=== PATIENT | female | born 1990 | race Hispanic/Latino ===

== ENCOUNTER 2018-01-09 12:47 | Emergency (ER) | payer OTHER ==
--- NOTE | 2018-01-09 14:14 | OBHP ---
Datetime: 01/09/2018 14:01 IP Adm Impression: , intrauterine IP Admit Plan: Discharge home Admit Comment, IP Provider: 27 yo female G1 with an IUP at 30.[address] Jackson office foe NST after a low baseline with Doppler at ofice visit Pt admits to lots of FM. Denies VB or LOF and no pains FHT's reactive and reassuring for GA. Fetus very active and difficult to keep in continuous monito ring NST Reactive Pt reassured and Dr. Jackson Notified and pt Discharge home in Stable and Satisfactory condition. Pelvic Type - PN: Adequate Extremities - PN: Normal Abdomen - PN: Normal Back - PN: Normal Breast - PN: Not Done Lungs - PN: Normal Heart - PN: Normal Thyroid - PN: Normal Neurologic - PN: Normal HEENT - PN: Normal General - PN: Normal IP Fetus A Comments: Pt very active FHR - Baseline A Provider: 140-150 Membranes, Provider: Intact Gestation - Est Wks by US: 30.5 EGA AdmitDate IP: 30.5 Vital Signs Provider: Reviewed; Within Normal Limits IP Chief Complaint: evaluation NICHD Variability Prov Fetus A: Moderate 6-25bpm NICHD Accel Fetus A IP Provider: 10X10 NICHD Decel Fetus A IP Provider: None Dilatation, Provider: NI Genitourinary Exam: Normal DTRs - PN: Normal
--- NOTE | 2018-01-09 14:17 | OBDCSUM ---
Datetime: 01/09/2018 13:59 Discharged to, Provider: Home Follow up at, Provider: dr robert Disch Instr Activity: Normal activity Disch Instr Diet: Regular Discharge Instructions, Provider: Routine instructions given Discharge Time: 01/09/2018 13:59 Follow up in weeks, Provider: scheduled appointment Disch Referrals: None Discharge Diagnosis Prov Other: Reassuring FH tracing
[2018-01-09 18:45] VITALS: BP 122/68; PULSE 86
== END 2018-01-09 14:03 | disposition home or self-care (01) ==
LOC: C.EROB 12:47 → EDSTATUS 12:51 → C.EROB 14:03
DX: Z36.89 Encounter for other specified antenatal screening (principal)

== ENCOUNTER 2018-02-18 16:55 | Emergency (ER) | payer OTHER ==
--- NOTE | 2018-02-18 17:04 | C.PDOC ---
History Of Present Illness 27 y/o female, , 36 weeks gestation, presents to ED for evaluation s/p slip and fall at work today. Pt states she landed on the right side of her chest/ribs and is complaining of pain to that area. Denies LOC, vaginal bleeding, leakage of fluids, or any other associated symptoms at this time. - HPI Time Seen by Provider: 02/18/18 16:57 History Per: Patient History/Exam Limitations: no limitations Location Of Injury: Right: Chest Recent travel outside of the [place]: No Additional History Per: Patient Past Medical History Reviewed: Historical Data, Nursing Documentation, Vital Signs - Medical History PMH: Seizures (febrile seizure at childhood age) Family History: States: Unknown Family Hx - Social History Hx Tobacco Use: No Hx Alcohol Use: No Hx Substance Use: No - Immunization History Hx Influenza Vaccination: No Hx Pneumococcal Vaccination: No Review Of Systems Except As Marked, All Systems Reviewed And Found Negative. Constitutional: Negative for: Fever, Chills Respiratory: Negative for: Shortness of Breath Gastrointestinal: Negative for: Nausea, Vomiting, Abdominal Pain Genitourinary: Negative for: Vaginal Discharge, Vaginal Bleeding Musculoskeletal: Positive for: Other (right lower rib pain ) Physical Exam - Physical Exam Appears: Non-toxic, No Acute Distress Skin: Warm, Dry, Ecchymosis (small area of ecchymosis right lower rib area) Head: Atraumatic, Normacephalic Eye(s): bilateral: Normal Inspection Oral Mucosa: Moist Neck: Normal ROM, Supple Chest: Symmetrical, No Deformity, Tenderness (small area of tenderness to right lower costal margin) Cardiovascular: Rhythm Regular, No Murmur Respiratory: Normal Breath Sounds, No Accessory Muscle Use, No Rales, No Rhonchi, No Wheezing Gastrointestinal/Abdominal: Soft, No Tenderness, No Guarding, No Rebound, Other (gravid abdomen) Back: No CVA Tenderness Extremity: Normal ROM Neurological/Psych: Oriented x3, Normal Speech ED Course And Treatment - Laboratory Results Result Diagrams: 02/18/18 19:01 Medical Decision Making Medical Decision Making: Discussed risks and benefits of rib Xray to patient to rule out possible fracture. Pt declined Xray. Pt declined pain meds. Disposition - Disposition Disposition: HOME/ ROUTINE Disposition Time: 05:00 Condition: GOOD Additional Instructions: return to er with worsening symptoms or concerns. you are declining an xray at this time. you are able to return at any time with any concern Instructions: Bruised Rib Forms: [employer] (Macedonian) - Clinical Impression Clinical Impression: Fall, Rib contusion - Scribe Statement The provider has reviewed the documentation as recorded by the Scribe KP All medical record entries made by the Scribe were at my direction and personally dictated by me. I have reviewed the chart and agree that the record accurately reflects my personal performance of the history, physical exam, medical decision making, and the department course for this patient. I have also personally directed, reviewed, and agree with the discharge instructions and disposition.
[2018-02-18 17:09] VITALS: BMI 38.9
[2018-02-18 17:13] VITALS: RESP 18; O2SAT 99
[2018-02-18 19:04] LABS: BASO # 0.1 K/uL (0.0-0.2); BASO % 0.7 % (0.0-2.0); EOS # 0.2 K/uL (0.0-0.7); EOS % 1.3 % (0.0-4.0); HEMOGLOBIN 10.7 g/dL (11.0-16.0); LYMPH # 2.3 K/uL (1.0-4.3); LYMPH % 20.1 % (20.0-40.0); MEAN CORPUSCULAR HEMOGLOBIN 29.3 pg (27.0-31.0); MEAN CORPUSCULAR HGB CONC 33.6 g/dL (33.0-37.0); MEAN PLATELET VOLUME 8.2 fL (7.2-11.7); MONO # 0.7 K/uL (0.0-0.8); MONO % 6.4 % (0.0-10.0); NEUT # 8.3 K/uL (1.8-7.0); NEUT % 71.5 % (50.0-75.0); RBC 3.65 Mil/uL (3.80-5.20); RED CELL DISTRIBUTION WIDTH 12.7 % (11.5-14.5); WHITE BLOOD COUNT 11.6 K/uL (4.8-10.8)
--- NOTE | 2018-02-18 19:18 | OBHP ---
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 Denies any LOF, VB or VD and admits to a dequate movement. PMHx and PSHx: Negative Allergies:Ceclor and MMR Vaccine, Unknown reaction Social Hx: Negative x 3 VSS, Afebrile NST Reactive FHT's Category 1 No contractions recorded, perceived or palpated D/W Dr. Jackson, her Private OBGYN and recommended continue monitoring x 4 hours and to draw CBC and T_Screen and orders placed. Also may have Tylenol for pain orn. Pt aware of POC and requested Tylenol and given. Pelvic Type - PN: Adequate Extremities - PN: Normal Abdomen - PN: Normal Back - PN: Abnormal Breast - PN: Not Done Lungs - PN: Normal Heart - PN: Normal Thyroid - PN: Normal Neurologic - PN: Normal General - PN: Normal Presentation-Admit: Vertex FHR - Baseline A Provider: 120 Membranes, Provider: Intact Contraction Comments Provider: None Comments, ACOG Physical Exam: + skin Abrasion over the Ourter portion of her Right Upper Quadrant an d was evaluated in ER and cleared Gestation - Est Wks by US: 36.3 EGA AdmitDate IP: 36.3 Vital Signs Provider: Reviewed; Within Normal Limits IP Chief Complaint: Maternal discomfort; evaluation; Trauma/Fall NICHD Variability Prov Fetus A: Moderate 6-25bpm NICHD Accel Fetus A IP Provider: 10X10 FHR Category Provider Fetus A: Category I NICHD Decel Fetus A IP Provider: None Dilatation, Provider: NA Genitourinary Exam: Normal DTRs - PN: Normal
--- NOTE | 2018-02-18 21:59 | OBDCSUM ---
Datetime: 02/18/2018 21:50 Discharged to, Provider: Home Follow up at, Provider: DR VEGA ESPINOZA Follow up at, Provider: Dr. 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 Denied direct trauma to her belly and a lso denied any LOF, VB or VD and admited to adequate movement. PMHx and PSHx: Negative Allergies:Ceclor and MMR Vaccine, Unknown reaction Social Hx: Negative x 3 VSS, Afebrile NST Reactive FHT's Category 1 No contractions recorded, perceived or palpated D/W Dr. Espinoza, her Private OBGYN and recommended continue monitoring x 4 hours and to draw CBC and T_Screen and orders placed. Also may have Tylenol for pain orn. FHT's reassuring during her 4 hrs of monitoring and no uterine activity perceived or recording Note given to stay off work in AM and will f/up with Dr. Espinoza on Tuesday and will get a note to re turn to work Advised to take Tylenol 2 tabs Q 4 hrs for pain as needed but not to exceed 4 doses in 24 hours. Discharge home with instructions Discharge Diagnosis Prov Other: S/P fall S/P Monitoring
[2018-02-19 03:19] VITALS: BP 134/66; PULSE 89; TEMP 98.9
== END 2018-02-18 21:50 | disposition home or self-care (01) ==
LOC: C.EROB 16:55 → C.ER 16:55 → C.EROB 21:50
DX: O9A.213 Injury, poisoning and certain other consequences of external causes complicating pregnancy, third trimester (principal); S20.211A Contusion of right front wall of thorax, initial encounter; Z3A.36 36 weeks gestation of pregnancy; W01.0XXA Fall on same level from slipping, tripping and stumbling without subsequent striking against object, initial encounter; Y99.0 Civilian activity done for income or pay

== ENCOUNTER 2018-02-27 11:46 | Emergency (ER) | payer OTHER ==
--- NOTE | 2018-02-27 12:44 | OBHP ---
Datetime: 02/27/2018 12:33 IP Adm Impression: Term, intrauterine ; , intrauterine IP Admit Plan: Observation/Evaluation Admit Comment, IP Provider: with IUP at 37+5 weeks. presents from private office with elevated BP, Systolic in 150 +FM - LOF - CTX - VB denies LOPEZ CP SOB N/V abnormal swelling or any visual chances PGYN: LMP 06/08 regular cycles, history of chlamydia in this s/p treatment, unknown PAPs PMH: childhood seizure disorder? last event age 7, no current antiepileptics PSH: denies FH: mothers side with DM and HTM NKDA Meds: PNV cervix closed EFM CAT 1 plan: PIH labs, monitor, private physician Dr. Maddi Jackson notified Pelvic Type - PN: Adequate Extremities - PN: Normal Abdomen - PN: Normal Back - PN: Not Done Breast - PN: Not Done Lungs - PN: Not Done Heart - PN: Not Done Thyroid - PN: Not Done Neurologic - PN: Normal HEENT - PN: Not Done General - PN: Normal FHR - Baseline A Provider: 140 Membranes, Provider: Intact Gestation - Est Wks by US: 37+5 EGA AdmitDate IP: 37.5 Vital Signs Provider: Reviewed; Within Normal Limits IP Chief Complaint: Signs/Symptoms Gestational HTN NICHD Variability Prov Fetus A: Moderate 6-25bpm NICHD Accel Fetus A IP Provider: 15X15 FHR Category Provider Fetus A: Category I NICHD Decel Fetus A IP Provider: None Dilatation, Provider: 0 Effacement, Provider: 0 Station, Provider: -3 Genitourinary Exam: Not Done DTRs - PN: Normal
[2018-02-27 13:24] LABS: MEAN CELL VOLUME 87.1 fL (81.0-99.0); MEAN CORPUSCULAR HEMOGLOBIN 29.7 pg (27.0-31.0); MEAN CORPUSCULAR HGB CONC 34.1 g/dL (33.0-37.0); MEAN PLATELET VOLUME 8.3 fL (7.2-11.7); RBC 3.71 Mil/uL (3.80-5.20); WHITE BLOOD COUNT 10.1 K/uL (4.8-10.8)
[2018-02-27 13:32] LABS: PROTHROMBIN TIME 11.4 SECONDS (9.7-12.2)
[2018-02-27 13:36] LABS: SQUAMOUS EPITHIAL 20 /hpf (0-5); URINE BACTERIA OCC (<OCC); URINE BILIRUBIN NEGATIVE (NEGATIVE); URINE BLOOD NEGATIVE (NEGATIVE); URINE CLARITY Hazy (Clear); URINE COLOR Yellow (YELLOW); URINE GLUCOSE (UA) NORMAL (Normal); URINE LEUKOCYTE ESTERASE 2+ Leu/uL (Negative); URINE PROTEIN NEGATIVE (NEGATIVE); URINE UROBILINOGEN NORMAL mg/dL (0.2-1.0)
[2018-02-27 13:42] LABS: ALBUMIN 3.4 g/dL (3.5-5.0); ALT/SGPT 22 U/L (9-52); AST/SGOT 17 U/L (14-36); BLOOD UREA NITROGEN 5 mg/dL (7-17); CALCIUM 8.8 mg/dl (8.6-10.4); GFR NON-AFRICAN AMERICAN > 60; URIC ACID 4.2 mg/dL (2.2-7.5)
--- NOTE | 2018-02-27 13:56 | OBHP ---
Datetime: 02/27/2018 12:33 Admit Comment, IP Provider: with IUP at 37+5 weeks. presents from private office with elevated BP, Systolic in 150 +FM - LOF - CTX - VB denies LOPEZ CP SOB N/V abnormal swelling or any visual chances PGYN: LMP 06/08 regular cycles, history of chlamydia in this s/p treatment, unknown PAPs PMH: childhood seizure disorder? last event age 7, no current antiepileptics PSH: denies FH: mothers side with DM and HTM NKDA Meds: PNV cervix closed EFM CAT 1 plan: PI labs, monitor, private physician Dr. Maddi Jackson notified Addendum: PIH labs normal, BPS, normal no signs/symptoms of preeclampsia to follow up in office next week Dr. Maddi Jackson notified EGA AdmitDate IP: 37.5
[2018-02-28 00:09] VITALS: BMI 40.4
[2018-02-28 01:06] VITALS: BP 130/81; PULSE 96; RESP 20; TEMP 98.3
== END 2018-02-27 14:03 | disposition home or self-care (01) ==
LOC: C.EROB 11:46
DX: O16.3 Unspecified maternal hypertension, third trimester (principal); Z3A.37 37 weeks gestation of pregnancy

== ENCOUNTER 2018-03-05 15:38 | Emergency (ER) | payer OTHER ==
--- NOTE | 2018-03-05 19:44 | OBHP ---
Datetime: 03/05/2018 19:40 IP Adm Impression: Term, intrauterine IP Admit Plan: Discharge home Admit Comment, IP Provider: A/P: IUP at 38+4 wks in early labor - primgravida - ambulated for 2 hours with no cervical change - labor precautions given - cat 1 tracing - D/C home FHR - Baseline A Provider: 140a Membranes, Provider: Intact Contraction Comments Provider: q4-7 EGA AdmitDate IP: 38.4 IP Chief Complaint: Uterine contractions NICHD Variability Prov Fetus A: Moderate 6-25bpm NICHD Accel Fetus A IP Provider: 15X15 FHR Category Provider Fetus A: Category I NICHD Decel Fetus A IP Provider: None Dilatation, Provider: 1 Effacement, Provider: 70 Station, Provider: -3
--- NOTE | 2018-03-05 19:47 | OBDCSUM ---
Datetime: 03/05/2018 19:39 Discharged to, Provider: Home Follow up at, Provider: Dr Jackson Disch Instr Activity: Normal activity Disch Instr Diet: Regular Discharge Instructions, Provider: Routine instructions given Discharge Time: 03/05/2018 19:40 Follow up in weeks, Provider: 03/06/18 Disch Referrals: None Discharge Diagnosis Prov Other: term, early labor
[2018-03-05 19:49] VITALS: BMI 38.9
[2018-03-06 00:03] VITALS: BP 120/76; PULSE 107; RESP 20; TEMP 98.7
== END 2018-03-05 19:55 | disposition home or self-care (01) ==
LOC: C.EROB 15:38
DX: O47.1 False labor at or after 37 completed weeks of gestation (principal); Z3A.38 38 weeks gestation of pregnancy

== ENCOUNTER 2018-03-06 11:08 | Inpatient (IN) | payer OTHER ==
[2018-03-06 12:36] VITALS: BMI 40.7
[2018-03-06 13:05] LABS: BASO # 0.1 K/uL (0.0-0.2); BASO % 1.2 % (0.0-2.0); EOS # 0.1 K/uL (0.0-0.7); EOS % 1.3 % (0.0-4.0); HEMOGLOBIN 10.6 g/dL (11.0-16.0); LYMPH # 1.8 K/uL (1.0-4.3); MEAN CELL VOLUME 87.3 fL (81.0-99.0); MEAN CORPUSCULAR HEMOGLOBIN 29.8 pg (27.0-31.0); MEAN CORPUSCULAR HGB CONC 34.1 g/dL (33.0-37.0); MEAN PLATELET VOLUME 8.6 fL (7.2-11.7); MONO # 0.7 K/uL (0.0-0.8); MONO % 6.4 % (0.0-10.0); NEUT # 8.4 K/uL (1.8-7.0); NEUT % 75.1 % (50.0-75.0); NRBC % 0.1 % (0.0-2.0); RBC 3.56 Mil/uL (3.80-5.20); RED CELL DISTRIBUTION WIDTH 13.5 % (11.5-14.5); WHITE BLOOD COUNT 11.1 K/uL (4.8-10.8)
--- NOTE | 2018-03-06 16:02 | OBHP ---
Datetime: 03/06/2018 12:48 IP Adm Impression: Term, intrauterine IP Admit Plan: Admit to unit Admit Comment, IP Provider: This 27 year old Female with PMHx of Gestational HTN and Chlamydial infe ction (treated early in this ) - instructed to come in by her ObGyn 2/2 worsening HTN for IO L. She is with EDC 03/15/18. She denies any vaginal bleeding, decreased movement, or loss o f fluid. She does c/o CTX's yesterday q5min from 1p to 6p. She also c/o milky vaginal drainage for th e last day. Otherwise denies any f/c, dizziness, headache, chest pain, SOB, abdominal pain, n/v, d/c, LE edema, or any additional acute complaints. PMHx- Gestational HTN, chlamydial infection treated in 1st trimester; Seizure d/o (last seizure at 7yo) PSHx- none Meds- PNV Allergies- ceclor (rash); Fish/shrimp (rash, difficulty breathing); MMR (fever 105F). FamHx- Mom 55yo w/DM + HTN; Dad 62yo w/ colitis SocHx- no tobacco, etoh, or drug use, +sexually active during ObHx: EDC 03/15/18 (based on LMP) LMP 06/08/17 GynHx: Menses onset at 15yo Periods [id number], lasting 5d- normal flow Last PAP 07/19/17- normal STDs- chlamydia tx'd in 1st trimester No fam hx of breast or ovarian/cervica cancer A_P: -admit for IOL, per Dr. Jackson's instructions -workup for preeclampsia- CBC, CMP, LDH, Uric acid, PT/PTT, fibrinogen -Gestational HTN- monitor BP -f/u RPR, HIV, HepBsAg -NST Reactive -activity as ordered -regular diet Case discussed with Dr. Nic Palmer, DO, PGY3 Extremities - PN: Normal Abdomen - PN: Normal Back - PN: Normal Breast - PN: Not Done Lungs - PN: Normal Heart - PN: Normal Thyroid - PN: Normal Neurologic - PN: Normal HEENT - PN: Normal General - PN: Normal Presentation-Admit: Vertex FHR - Baseline A Provider: 144 Membranes, Provider: Intact Contraction Comments Provider: Ocassional Comments, ACOG Physical Exam: no LE Edema, Fundus at 40cm Gestation - Est Wks by US: 38.5 IP Hx Assessment: PNC records available and reviewed EGA AdmitDate IP: 38.5 Vital Signs Provider: Reviewed; Within Normal Limits IP Chief Complaint: Signs/Symptoms Gestational HTN; Scheduled induction of labor NICHD Variability Prov Fetus A: Moderate 6-25bpm NICHD Accel Fetus A IP Provider: 10X10 FHR Category Provider Fetus A: Category I NICHD Decel Fetus A IP Provider: None Dilatation, Provider: 1 Effacement, Provider: 30 Station, Provider: -3 Genitourinary Exam: Normal DTRs - PN: Normal
--- NOTE | 2018-03-06 16:08 | OBADHP ---
Datetime: 03/06/2018 12:48 Admit Comment, IP Provider: This 27 year old Female with PMHx of Gestational HTN and Chlamydial infe ction (treated early in this ) - instructed to come in by her ObGyn 2/2 worsening HTN for IO L. She is with EDC 03/15/18. She denies any vaginal bleeding, decreased movement, or loss o f fluid. She does c/o CTX's yesterday q5min from 1p to 6p. She also c/o milky vaginal drainage for th e last day. Otherwise denies any f/c, dizziness, headache, chest pain, SOB, abdominal pain, n/v, d/c, LE edema, or any additional acute complaints. PMHx- Gestational HTN, chlamydial infection treated in 1st trimester; Seizure d/o (last seizure at 7yo) PSHx- none Meds- PNV Allergies- ceclor (rash); Fish/shrimp (rash, difficulty breathing); MMR (fever 105F). FamHx- Mom 55yo w/DM + HTN; Dad 62yo w/ colitis SocHx- no tobacco, etoh, or drug use, +sexually active during ObHx: EDC 03/15/18 (based on LMP) LMP 06/08/17 GynHx: Menses onset at 15yo Periods [id number], lasting 5d- normal flow Last PAP 07/19/17- normal STDs- chlamydia tx'd in 1st trimester No fam hx of breast or ovarian/cervica cancer A_P: -admit for IOL, per Dr. Jackson's instructions and will place Cervidil -workup for preeclampsia- CBC, CMP, LDH, Uric acid, PT/PTT, fibrinogen ordered and pending -Gestational HTN- Continue monitor BP -f/u RPR, HIV, HepBsAg still pending -NST Reactive -activity as ordered -regular diet -Anticipate Vaginal delivery Case discussed with Dr. Nic Palmer, DO, PGY3 Extremities - PN: Normal Abdomen - PN: Normal Back - PN: Normal Breast - PN: Not Done Lungs - PN: Normal Heart - PN: Normal Thyroid - PN: Normal Neurologic - PN: Normal HEENT - PN: Normal General - PN: Normal Presentation-Admit: Vertex FHR - Baseline A Provider: 144 Membranes, Provider: Intact Contraction Comments Provider: Ocassional Comments, ACOG Physical Exam: no LE Edema, Fundus at 40cm Gestation - Est Wks by US: 38.5 IP Hx Assessment: PNC records available and reviewed Vital Signs Provider: Reviewed; Within Normal Limits IP Chief Complaint: Signs/Symptoms Gestational HTN; Scheduled induction of labor NICHD Variability Prov Fetus A: Moderate 6-25bpm NICHD Accel Fetus A IP Provider: 10X10 FHR Category Provider Fetus A: Category I NICHD Decel Fetus A IP Provider: None Dilatation, Provider: 1 Effacement, Provider: 30 Station, Provider: -3 Genitourinary Exam: Normal DTRs - PN: Normal EGA AdmitDate IP: 38.5 IP Adm Impression: Term, intrauterine IP Admit Plan: Admit to unit Datetime: 02/27/2018 12:33 Pelvic Type - PN: Adequate Datetime: 01/09/2018 14:01 IP Fetus A Comments: Pt very active
[2018-03-07] MEDS ORDERED: Oxytocin 30 UNIT 30 UNITS/500 ML BAG IV ONE ×2 (03:22→14:53)
[2018-03-07] MEDS ORDERED: Oxytocin 30 UNIT 30 UNITS/500 ML BAG IV SCH (03:30)
[2018-03-07 05:26] LABS: SQUAMOUS EPITHIAL 11 /hpf (0-5); URINE BACTERIA RARE (<OCC); URINE BILIRUBIN NEGATIVE (NEGATIVE); URINE BLOOD NEGATIVE (NEGATIVE); URINE CLARITY Hazy (Clear); URINE COLOR Yellow (YELLOW); URINE GLUCOSE (UA) NORMAL (Normal); URINE HYALINE CAST 0-2 /lpf (0-2); URINE LEUKOCYTE ESTERASE 1+ Leu/uL (Negative); URINE PROTEIN NEGATIVE (NEGATIVE); URINE UROBILINOGEN NORMAL mg/dL (0.2-1.0)
[2018-03-07 05:51] LABS: CREATININE, RANDOM URINE 40.5 mg/dL
[2018-03-07 06:01] LABS: URIC ACID 4.3 mg/dL (2.2-7.5)
[2018-03-07 06:03] LABS: PROTHROMBIN TIME 10.7 SECONDS (9.7-12.2)
[2018-03-07 06:52] LABS: ALBUMIN 2.9 g/dL (3.5-5.0); ALT/SGPT 15 U/L (9-52); AST/SGOT 13 U/L (14-36); BLOOD UREA NITROGEN 5 mg/dL (7-17); CALCIUM 8.4 mg/dl (8.6-10.4); GFR NON-AFRICAN AMERICAN > 60
--- NOTE | 2018-03-07 07:23 | OBPN ---
Datetime: 03/07/2018 03:22 IP Progress Impression: Reassuring heart rate; Reactive non-stress test Datetime: 03/06/2018 14:13 IP Informed Consent Obtain: Vaginal Delivery IP Procedures: Sterile Vag Exam IP Progress Plan: Continue present management; Cervical Ripening; Anticipate Vaginal Delivery Membranes, Provider: Intact Contraction Comments Provider: Ocassional FHR - Baseline A Provider: 140 Gestation - Est Wks by US: 38.5 Presentation-Admit: Vertex IP Progress Note Comment: Pt seen and examined again VS. BP's WNL and no symptoms of preE Cervidil was placed at 14:30 FHT's difficult to trace secondary to patient's body habitus but reassuring Anticipate a Vaginal Deliveryg Vital Signs Provider: Reviewed; Within Normal Limits NICHD Accel Fetus A IP Provider: 10X10 NICHD Variability Prov Fetus A: Moderate 6-25bpm Dilatation, Provider: 1 Effacement, Provider: 30 Station, Provider: -3 NICHD Decel Fetus A IP Provider: None Datetime: 03/06/2018 12:48 FHR Category Provider Fetus A: Category I Datetime: 01/09/2018 14:01 IP Fetus A Comments: Pt very active
--- NOTE | 2018-03-07 07:31 | OBPN ---
Datetime: 03/07/2018 03:22 IP Informed Consent Obtain: Vaginal Delivery IP Procedures: Sterile Vag Exam IP Progress Plan: Induction FHR - Baseline A Provider: 140 IP Progress Note Comment: Pt seen and Examined. Cervidil removed after 12 hrs Miimal to no change on cervical exam Irregular contracciones and in pain but declined epidural Will alow to shower, ambulate for a while and will start Pitocin Anticipate a vaginal delivery Vital Signs Provider: Reviewed; Within Normal Limits FHR Category Provider Fetus A: Category I Dilatation, Provider: 1 Effacement, Provider: 30 Station, Provider: -3
[2018-03-07] MEDS ORDERED: Bupivacaine HCl/FentaNYL Cit 100 ML EPI ONE ×2 (11:56→18:52)
--- NOTE | 2018-03-07 14:10 | OBPN ---
Datetime: 03/07/2018 14:07 IP Progress Plan: Continue present management IP Progress Note Comment: pt seen and examiend silvio mezaison ruq/epaist pain s/p epdirau vs see aboe ve /-3 arom celar ptiocns mal586/mod brice intermitten decel toco; q 2- 3min a/p @ 38.6 wks GA IOL for gestatinal htn oxgye, left lateral IVH possibeldc pit reevalute cont current mantent
--- NOTE | 2018-03-07 15:27 | OBPN ---
Datetime: 03/07/2018 15:21 IP Progress Impression: Normal progression of labor IP Informed Consent Obtain: Vaginal Delivery IP Procedures: Artificial ROM IP Progress Plan: Continue present management Pool Provider: Positive Membranes, Provider: Ruptured Contraction Comments Provider: q2-3 min FHR - Baseline A Provider: 130 Gestation - Est Wks by US: 39.0 Presentation-Admit: Vertex IP Progress Note Comment: pt seen and examined adn reprots some prssure s/p epdiural vss ve; 3-4/60/-3 vtx arom , clear pitocin as per protocl efm; Ct I Toto: q 2-3 min A/p IOL for gestataiona htn cont current mangment Vital Signs Provider: Reviewed; Within Normal Limits FHR Category Provider Fetus A: Category I NICHD Variability Prov Fetus A: Moderate 6-25bpm Dilatation, Provider: 3 Effacement, Provider: 60 Station, Provider: -3
[2018-03-07] MEDS ORDERED: Bupivacaine HCl 0.5% PF (30 ml) Inj ONE (19:49)
[2018-03-07] MEDS ORDERED: Sodium Citrate/Citric Acid 15 ml Sol ONE (21:16)
[2018-03-07] MEDS ORDERED: cefOXitin IV 2 gm in Saline 0 GM/0 ML BAG IVPB ONE (21:17)
[2018-03-07] MEDS ORDERED: Sodium Citrate/Citric Acid 15 ml Sol PO ONE (21:20)
[2018-03-07] MEDS ORDERED: Bupivacaine HCl 0.25% PF (10 ml) Inj ONE (21:24)
[2018-03-07] MEDS ORDERED: Morphine 1 mg/ml preservative-free Inj(Duramorph) ONE (21:24)
[2018-03-07] MEDS ORDERED: Sodium Bicarbonate (8.4%) 50 Meq Syringe ONE (21:24)
[2018-03-07] MEDS ORDERED: Lidocaine 2% MPF (5 ml) Inj ONE ×2 (21:28→22:29)
[2018-03-07] MEDS ORDERED: EPINEPHrine 1 mg/ml (1:1000) Inj ONE (21:29)
[2018-03-07] MEDS ORDERED: Oxytocin 20 units in LR 2,000 ML IV ONE (21:34)
--- NOTE | 2018-03-07 21:48 | OBPN ---
Datetime: 03/07/2018 21:41 IP Progress Impression: Arrest of dilatation/descent IP Informed Consent Obtain: Section Delivery IP Progress Plan: Deliver- Section Membranes, Provider: Ruptured Contraction Comments Provider: q 1-2 min FHR - Baseline A Provider: 150 IP Progress Note Comment: pt seen adn examiend c/ oprssure. s/p epdiural pt denies headaches, blurry vision, ruq/epigastric pain VS see above PE: GEN NAD AA Ox 3 RESP: ctab/l CVS: RRR, +S1/S2 ABD: soft NT, ND, no RUQ/epgiastric tenderness VE: /-3 A?P with failed IOL r/b/a/i of PLTCS not limtied ot dvt, pe, cva, infection, bleeidng injry to bowel , bladder or othe r orgnas consent obatined or/anehesi aware preop anticos abodminal prep scds Vital Signs Provider: Reviewed Vital Signs Provider Details: 140-150s/80-90s NICHD Variability Prov Fetus A: Moderate 6-25bpm Dilatation, Provider: 4 Effacement, Provider: 60 Station, Provider: -3
[2018-03-07] MEDS ORDERED: DiphenhydrAMINE 50 mg/ml Inj IVP PRN (21:52)
[2018-03-07] MEDS ORDERED: Naloxone 0.4 mg/ml Inj (Adult) IVP PRN (21:52)
[2018-03-07] MEDS ORDERED: Oxytocin 10 Units/ml Inj ONE (22:34)
--- NOTE | 2018-03-07 23:28 | OBDS ---
DELIVERY PERSONNEL Delivery Doctor: Maddi Jackson MD Scrub Nurse: Marielle Zhu OBT Reservations And Ticketing Agent: Darlene White RN Anesthesiologist: Katrina Jin MD MATERNAL INFORMATION Delivery Anesthesia: Epidural Provider Comments: live male 7lbs 5 ounces ebl 800 ml noral appearing uterus, tubes and ovaries b/l LABOR SUMMARY EDC: 03/15/2018 00:00 No. Babies in Womb: 1 Attempted: No Labor Anesthesia: Epidural LABOR INFORMATION Cervical Ripening Agents: REMOVED CERVIDIL Oxytocin: Induction Group B Beta Strep: Negative Steroids Given: None Reason Steroids Not Administered: Not Applicable MEMBRANES Membranes Rupture Method: Artificial Rupture of Membranes: 03/07/2018 13:16 Amniotic Fluid Color: Clear Amniotic Fluid Amount: Moderate Amniotic Fluid Odor: Normal CSECTION DELIVERY Primary Indication: Arrest of Descent CSection Incision: Lower Uterine Transverse BABY A INFORMATION Method of Delivery: Born in Route : No : N/A Forceps: N/A Vacuum Extraction: N/A Shoulder Dystocia : No PRESENTATION/POSITION BABY A Presentation: Cephalic Cephalic Presentation: Vertex PLACENTA INFORMATION BABY A Placenta Method of Delivery: Manual Removal Placenta Status: Delivered SCORES BABY A Heart Rate 1 min: >100 bpm Resp Effort 1 min: Good Cry Reflex Irritability 1 min: Cough or Sneeze or Pulls Away Muscle Tone 1 min: Active Motion Color 1 min: Body [place], Extremities Blue SCORE 1 MIN: 9 Heart Rate 5 min: >100 bpm Resp Effort 5 min: Good Cry Reflex Irritability 5 min: Cough or Sneeze or Pulls Away Muscle Tone 5 min: Active Motion Color 5 min: Body [place], Extremities Blue SCORE 5 MIN: 9 INFORMATION BABY A Gestational Age at Delivery: 38.6 Gestational Status: Term Outcome : Liveborn Condition : Stable Infant Sex: Male IDENTIFICATION/MEDS BABY A ID Band Number: [id number] ID Band Location: Left Leg; Left Arm Sensor Applied: Yes Sensor Number: [id number] Sensor Location : Cord Clamp WEIGHT/LENGTH BABY A Birthweight (gms): 3320 Weight (lb): 7 Infant Weight (oz): 5 Infant Length Inches: 20.75 Infant Length cms: 52.7 CORD INFORMATION BABY A No. Cord Vessels: 3 Nuchal Cord : N/A Cord Blood Taken: Yes Suction: Mouth
[2018-03-08 07:13] LABS: MEAN CELL VOLUME 87.4 fL (81.0-99.0); MEAN CORPUSCULAR HEMOGLOBIN 29.6 pg (27.0-31.0); MEAN CORPUSCULAR HGB CONC 33.9 g/dL (33.0-37.0); MEAN PLATELET VOLUME 8.4 fL (7.2-11.7); RBC 2.92 Mil/uL (3.80-5.20); RED CELL DISTRIBUTION WIDTH 13.2 % (11.5-14.5); WHITE BLOOD COUNT 14.9 K/uL (4.8-10.8)
[2018-03-08 07:22] LABS: HEMOGLOBIN 8.6 g/dL (11.0-16.0)
[2018-03-08] MEDS: Simethicone 80 mg Chewtab PO SCH ×4 (10:01→23:18)
[2018-03-08] MEDS: Prenatal Multivit/Folic Acid/Iron Tab PO SCH (10:02)
--- NOTE | 2018-03-08 10:37 | OP ---
PROCEDURE DATE: 03/07/2018 SURGEON: Maddi Jackson MD PATIENT ACCOUNTS SPECIALIST: Basim Babb MD PREOPERATIVE DIAGNOSES: Arrest of dilation, term intrauterine . POSTOPERATIVE DIAGNOSIS: Arrest of dilation. TYPE OF ANESTHESIA: Epidural. ESTIMATED BLOOD LOSS: 800 mL. FINDINGS: Live male , cephalic presentation, Apgars 9 and 9, weight of 7 pounds 5 ounces. Normal-appearing uterus, tubes, and ovaries. Dr. Basim Babb, regional vice president surgical sales, was present for the entire case; essential in gaining entry, retraction, exposure, holding the bladder blade, helping the delivery of the baby, closing of all layers. SPECIMEN SENT TO PATHOLOGY: Placenta. COMPLICATIONS: None. INDICATIONS: The patient is a , approximately 38 plus weeks and was in induction of labor for gestational hypertension. The patient was given induction of labor which failed to progress. Risks, benefits, alternatives, and indications of primary low transverse section were discussed with the patient. The patient agreed. Consent was then obtained. DESCRIPTION OF PROCEDURE: The patient was taken to the operating room where she had anesthesia. Once it was found to be adequate, she was placed on the operating table in the dorsal supine position. The patient was then prepped and draped in the usual sterile fashion. A time-out confirmed correct patient and correct procedure. The patient was given preoperative prophylactic antibiotics. A Pfannenstiel skin incision was made with a scalpel and carried down to the underlying fascia with the Bovie. The fascia was incised in the midline and the incision was extended laterally with the Bovie. The inferior aspect of the fascial incision was grasped with Allis and Amira clamps, and the underlying rectus muscles were dissected off bluntly. Attention was then turned to the superior aspect of the fascial incision, which in a similar fashion was grasped with Allis and Amira clamps, and the underlying rectus muscles were dissected off bluntly. The rectus muscles were then bluntly in the midline. The peritoneum was identified and entered in clear space. The incision was extended laterally and superiorly until there was good visualization of the bladder. The lower end of the Carl was then reinserted. The vesicouterine peritoneum was incised with Metzenbaum scissors. The bladder flap was created digitally and the lower end of the Carl was then reinserted. The lower uterine segment was incised in a transverse fashion. Uterine incision was extended laterally with bandage scissors. The surgeon's hand entered the uterine cavity. Infant's head was delivered atraumatically, followed by delivery of the shoulders, followed by delivery of body. Both oral and nasal passages of the baby were bulb suctioned. The umbilical cord was clamped and cut. Baby was handed off to the awaiting hearing dog trainer. Cord blood and cord gases were collected and sent x2. The placenta was then delivered manually. The uterus was exteriorized of all clots and debris. The uterine incision was repaired with 0 Vicryl in a running continuous locked fashion. A second layer of the same suture was used to close the uterus in running imbricating manner. A 0 Monocryl was used to close the uterus. Hemostasis was obtained. There were normal tubes and ovaries. The uterus was then returned to the abdomen. Pericolic gutters were cleared of all clots and debris. There was good hemostasis noted at the uterine incision site. The peritoneum was reapproximated and closed with 2-0 chromic in an running continuous fashion. The rectus was reapproximated and closed with 2-0 chromic in an interrupted manner. The fascia was reapproximated and closed with 0 Vicryl in a running continuous fashion. The subcutaneous space was closed with 2-0 plain in an interrupted manner, and the skin was reapproximated and closed with 4-0 Monocryl in a running subcuticular fashion. At the end of the procedure, all needle, sponge and instrument counts were noted to be correct x2. The patient tolerated the procedure well and was transferred to the recovery room in stable condition. Maddi Jackson MD
[2018-03-08] MEDS: Oxycodone/Acetaminophen 5/325 mg Tab PO PRN ×2 (12:09→18:02)
[2018-03-08 14:16] LABS: ALBUMIN 2.8 g/dL (3.5-5.0); ALT/SGPT 19 U/L (9-52); AST/SGOT 23 U/L (14-36); BLOOD UREA NITROGEN 4 mg/dL (7-17); CALCIUM 8.6 mg/dl (8.6-10.4); GFR NON-AFRICAN AMERICAN > 60
--- NOTE | 2018-03-08 22:22 | OBPPN ---
Datetime: 03/08/2018 10:16 PP Pain Prov: Within normal limits PP Breasts Prov: Not Done PP Heart Prov: Normal PP Lungs Prov: Normal PP Abdomen/Uterus Prov: Normal PP Lochia Prov: Normal PP Vulva/Perineum Prov: Normal PP CVA Tenderness Prov: Normal PP Extremities Prov: Normal PP C/S Incision Prov: Not Applicable PP Comments Phys Exam Prov: Fundus firm and nontender Below Umbilicus PP Impression Prov: Normal progression PP Plan Prov: Continue present management; consult PP Progress Note Prov: PPD#1 S/P PP H_H 8.6/25.5 Acute Anemia secondary to acute blood loss/Asymptomatic Will start on Fe daily with Colace Encouraged to increase po water intake Stable and Satisfactory condition and recovery Advance care Anticipate discharge home in AM IP PP Procedures: None
[2018-03-08] MEDS ORDERED: Bisacodyl 5mg EC Tab PO ONE (23:13)
[2018-03-09] MEDS: Oxycodone/Acetaminophen 5/325 mg Tab PO PRN ×2 (06:39→18:55)
[2018-03-09 08:31] LABS: BASO # 0.1 K/uL (0.0-0.2); BASO % 0.5 % (0.0-2.0); EOS # 0.1 K/uL (0.0-0.7); EOS % 0.5 % (0.0-4.0); HEMOGLOBIN 8.7 g/dL (11.0-16.0); LYMPH % 11.5 % (20.0-40.0); MEAN CELL VOLUME 87.9 fL (81.0-99.0); MEAN CORPUSCULAR HEMOGLOBIN 28.9 pg (27.0-31.0); MEAN CORPUSCULAR HGB CONC 32.9 g/dL (33.0-37.0); MEAN PLATELET VOLUME 8.2 fL (7.2-11.7); NEUT # 14.1 K/uL (1.8-7.0); NEUT % 81.5 % (50.0-75.0); RBC 3.02 Mil/uL (3.80-5.20); RED CELL DISTRIBUTION WIDTH 13.7 % (11.5-14.5); WHITE BLOOD COUNT 17.3 K/uL (4.8-10.8)
[2018-03-09] MEDS: Prenatal Multivit/Folic Acid/Iron Tab PO SCH (10:08)
[2018-03-09] MEDS: Simethicone 80 mg Chewtab PO SCH ×4 (10:08→21:30)
--- NOTE | 2018-03-09 12:28 | OBDCSUM ---
Datetime: 03/09/2018 12:25 Discharged to, Provider: Home Follow up at, Provider: Dr Jackson Disch Instr Activity: Normal activity Disch Instr Diet: Regular Discharge Instructions, Provider: Routine instructions given Discharge Diagnosis, Provider: Term Delivered Discharge Time: 03/10/2018 12:00 Follow up in weeks, Provider: 1 week Disch Referrals: None Contraception discussed, Prov: Yes Disch Activity Restrictions: No sexual activity; Nothing in vagina - [place], tampons, douche Discharge Comment, Provider: dc in AM precautions given Contraception after Delivery: Not Planning to Use
--- NOTE | 2018-03-09 12:28 | OBPPN ---
Datetime: 03/09/2018 12:22 PP Pain Prov: Within normal limits PP Nausea Prov: Denies PP Flatus Prov: Yes PP BM Prov: No PP Breasts Prov: Normal PP Heart Prov: Normal PP Lungs Prov: Normal PP Abdomen/Uterus Prov: Normal PP Lochia Prov: Normal PP Vulva/Perineum Prov: Normal PP CVA Tenderness Prov: Normal PP Extremities Prov: Normal PP C/S Incision Prov: Normal PP Progress Prov: Normal PP Impression Prov: Normal progression PP Plan Prov: Continue present management PP Progress Note Prov: pt seen and examined and reports pain controlled with medication. pt ambulati ng, voiding, passing flatus, toerlated reguar diet, no fever, chills, nausea, vomiting. VS see above PE GEN NAD AAO x 3 RESP: CTAB?l CVS: RRR< +S1/S2 ABD: Soft, NT/ND, +BS. no guarding no rebound tenderness no rigidity FUNDU: Firm, belwo level O fumbic, non tender VE: minimal lochia, non fousl smelling LE: negative homans sign s/p PLTCS POD #2 doign well with endometritis s/p antiaics pain managment regaulr diet bowel regiment encourage breast feeding and ambulation anticiate dc in am Vital Signs Provider PP: Reviewed; Within Normal Limits
[2018-03-09 16:29] VITALS: RESP 20
[2018-03-10 08:48] LABS: BASO # 0.1 K/uL (0.0-0.2); BASO % 0.8 % (0.0-2.0); EOS # 0.2 K/uL (0.0-0.7); EOS % 2.2 % (0.0-4.0); HEMOGLOBIN 8.7 g/dL (11.0-16.0); LYMPH # 1.2 K/uL (1.0-4.3); LYMPH % 11.8 % (20.0-40.0); MEAN CELL VOLUME 88.2 fL (81.0-99.0); MEAN PLATELET VOLUME 8.3 fL (7.2-11.7); MONO # 0.5 K/uL (0.0-0.8); NEUT # 8.1 K/uL (1.8-7.0); NEUT % 80.2 % (50.0-75.0); RBC 2.9 Mil/uL (3.80-5.20); RED CELL DISTRIBUTION WIDTH 13.4 % (11.5-14.5); WHITE BLOOD COUNT 10.2 K/uL (4.8-10.8)
[2018-03-10 09:29] VITALS: BP 117/68; PULSE 100; O2SAT 98
[2018-03-10] MEDS: Oxycodone/Acetaminophen 5/325 mg Tab PO PRN ×2 (09:45→16:30)
[2018-03-10] MEDS: Prenatal Multivit/Folic Acid/Iron Tab PO SCH (09:47)
[2018-03-10] MEDS: Simethicone 80 mg Chewtab PO SCH ×2 (09:47→15:00)
[2018-03-10] MEDS ORDERED: Influenza Vaccine 60 MCG/0.5 ML SYR (3 yr & up) IM ONE (10:00)
[2018-03-10 22:24] VITALS: TEMP 97
--- NOTE | 2018-03-11 06:57 | OBPPN ---
Datetime: 03/10/2018 16:38 PP Nausea Prov: Denies PP Flatus Prov: Yes PP BM Prov: Yes PP Heart Prov: Normal PP Lungs Prov: Normal PP Abdomen/Uterus Prov: Normal PP Lochia Prov: Normal PP Extremities Prov: Normal PP C/S Incision Prov: Normal PP Progress Prov: Normal PP Impression Prov: Normal progression PP Plan Prov: Discharge PP Progress Note Prov: Pt is a 27yo female PPD#2. Pt denies chest pain, SOB, excessive abdominal ramon n. Pt states pain is improving, and controlled well with motrin and percocet. Pt reports fever today at 101.3F. Pt denies chills or other signs of infection. Pt was instructed to drink water and walk. Assessement and plan - continue to monitor for fever 101.3F, which has resolved to 97F on multiple repeat temp readings throughout the day - encourage to walk - encourage to drink water - will continue motrin and percocet for pain control - pt tolerating diet well, passing flatus, and moving bowels Pt seen, examined, assessment and plan discussed with Dr Nilda Panda PGY1, Internal Medicine Resident IP PP Procedures: None
--- NOTE | 2018-03-11 07:01 | OBDCSUM ---
Datetime: 03/10/2018 17:56 Discharged to, Provider: Home Follow up at, Provider: Dr. Jackson Disch Instr Activity: Normal activity Disch Instr Diet: Regular Discharge Instructions, Provider: Routine instructions given Discharge Diagnosis, Provider: Term Delivered Follow up in weeks, Provider: 7-10 days Contraception discussed, Prov: Yes Disch Activity Restrictions: No exercising; Minimize stair-climbing; No sexual activity; Nothing in vagina - [place], tampons, douche Discharge Comment, Provider: Pt is a 27yo female PPD#2. Pt denies chest pain, SOB, excessive abdomin al pain. Pt states pain is improving, and controlled well with motrin and percocet. Pt reports fever today at 101.3F. Pt denies chills or other signs of infection. Pt was instructed to drink water and w alk. Assessement and plan - continue to monitor for fever 101.3F this AM x 1 only, which resolved to 97F on multiple repeat temp readings throughout the day after drinking plenty of water - encourage to walk - encourage to drink water - will continue motrin and percocet for pain control - pt tolerating diet well, passing flatus, and moving bowels D/C home in Stable and Satisfactory condition, with instructions and Rx. Discharge Diagnosis Prov Other: Maternal Fever Contraception after Delivery: Undecided
== END 2018-03-10 18:23 | disposition home or self-care (01) | DRG 788 ==
LOC: C.EROB 11:08 → C.4D 12:25 → C.4M 03-08 03:15
PROVIDERS: ADMIT Obstetrics & Gynecology; ATTEND Obstetrics & Gynecology
PROC: 10907ZC Drainage of Amniotic Fluid, Therapeutic from Products of Conception, Via Natural or Artificial Opening (ICD-10-PCS; principal; 2018-03-07)
PROC: 10D00Z1 Extraction of Products of Conception, Low, Open Approach (ICD-10-PCS; 2018-03-07)
DX: O13.4 Gestational [pregnancy-induced] hypertension without significant proteinuria, complicating childbirth (principal); O61.0 Failed medical induction of labor; O62.0 Primary inadequate contractions; O32.4XX0 Maternal care for high head at term, not applicable or unspecified; Z3A.38 38 weeks gestation of pregnancy; Z37.0 Single live birth

== ENCOUNTER 2018-03-18 21:57 | Emergency (ER) | payer OTHER ==
[2018-03-18 21:57] VITALS: BMI 40.7
[2018-03-18 22:18] VITALS: BP 116/78; PULSE 84; TEMP 98.5; O2SAT 98
[2018-03-18] MEDS ORDERED: Benzoin Compound Tincture (60 ml) ONE (22:56)
--- NOTE | 2018-03-18 23:05 | C.PDOC ---
History Of Present Illness 27 year old female presents to the ED for evaluation of drainage from her c- section wound. Patient states she had done 10 days ago, was seen by PMD on for same presentation she had a suture placed and given antibiotics. Patient reports drainage started today again. Patient denies fever, chills, nausea, vomit, diarrhea, abdominal pain, rash. Time Seen by Provider: 03/18/18 22:19 Chief Complaint (Nursing): Wound Check History Per: Patient History/Exam Limitations: no limitations Onset/Duration Of Symptoms: Days Ago (10) Current Symptoms Are (Timing): Still Present Location Of Injury: Right: Abdomen Quality Of Symptoms: Draining Recent travel outside of the [place]: No Additional History Per: Patient Past Medical History Reviewed: Historical Data, Nursing Documentation, Vital Signs Vital Signs: Last Vital Signs Temp 98.5 F 03/18/18 22:14 Pulse 84 03/18/18 22:14 Resp 14 03/18/18 22:14 BP 116/78 03/18/18 22:14 Pulse Ox 98 03/18/18 22:14 - Medical History PMH: Seizures (febrile seizure at childhood age) Surgical History: - [facility] Procedures DRAINAGE OF AMNIOTIC FL, THERAP FROM POC, VIA OPENING (03/06/18) EXTRACTION OF POC, LOW CERVICAL, OPEN APPROACH (03/06/18) Family History: States: Unknown Family Hx - Social History Hx Tobacco Use: No Hx Alcohol Use: No Hx Substance Use: No - Immunization History Hx Tetanus Toxoid Vaccination: No Hx Influenza Vaccination: No Hx Pneumococcal Vaccination: No Review Of Systems Constitutional: Negative for: Fever, Chills Eyes: Negative for: Vision Change Cardiovascular: Negative for: Chest Pain Respiratory: Negative for: Shortness of Breath Gastrointestinal: Negative for: Nausea, Vomiting, Abdominal Pain Skin: Positive for: Other (wound draining) Neurological: Negative for: Weakness, Numbness Physical Exam - Physical Exam Appears: Non-toxic, No Acute Distress Skin: Normal Color, Warm, Dry Head: Atraumatic, Normacephalic Eye(s): bilateral: Normal Inspection, PERRL Neck: Supple Cardiovascular: Rhythm Regular Respiratory: Normal Breath Sounds Gastrointestinal/Abdominal: Soft, No Tenderness, Other (2 cm wound dehiscence at the right suprapubic area with minimal serosanguinous discharge. No fluctuance, no foul smeeling) Extremity: Normal ROM, No Tenderness, No Swelling Neurological/Psych: Oriented x3, Normal Speech, Normal Cognition Gait: Steady ED Course And Treatment O2 Sat by Pulse Oximetry: 98 (ON RA) Pulse Ox Interpretation: Normal Progress Note: Wound was irrigated with saline, 3 steri strips were applied and dressing was placed in the wound area. Patient was advised to follow up with OBGYN for further evaluation. Disposition Counseled Patient/Family Regarding: Diagnosis, Need For Followup - Disposition Referrals: Maddi Jackson MD [Staff Provider] - Disposition: HOME/ ROUTINE Disposition Time: 23:02 Condition: STABLE Additional Instructions: Please follow up with PMD Wound care as instructed Return to ER if worse Instructions: Wound Care (DC) Forms: [employer] ([place]) - Clinical Impression Clinical Impression: Non-healing surgical wound - PA / CABLEMAN / Resident Statement MD/DO has reviewed & agrees with the documentation as recorded. - Scribe Statement The provider has reviewed the documentation as recorded by the Scribe Bi Torres All medical record entries made by the Scribe were at my direction and personally dictated by me. I have reviewed the chart and agree that the record accurately reflects my personal performance of the history, physical exam, medical decision making, and the department course for this patient. I have also personally directed, reviewed, and agree with the discharge instructions and disposition.
[2018-03-18 23:11] VITALS: RESP 20
== END 2018-03-18 23:11 | disposition home or self-care (01) ==
LOC: C.ER 21:57
DX: O86.00 Infection of obstetric surgical wound, unspecified (principal)